=== PATIENT | female | born 1945 | race Caucasian/White ===

== ENCOUNTER → 2016-10-31 | Outpatient (CLI) | payer MEDICARE ==
[2016-10-27 13:40] VITALS: BMI 27.3
[2016-10-31 12:59] VITALS: BP 143/83; PULSE 74; RESP 16; TEMP 98.3
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
== END | disposition home or self-care (01) ==
LOC: PNWHC3 12:34
PROVIDERS: ATTEND Specialist
DX: M51.36 Other intervertebral disc degeneration, lumbar region (principal); M47.816 Spondylosis without myelopathy or radiculopathy, lumbar region; M46.96 Unspecified inflammatory spondylopathy, lumbar region; Z79.899 Other long term (current) drug therapy; Z88.8 Allergy status to other drugs, medicaments and biological substances; F98.8 Other specified behavioral and emotional disorders with onset usually occurring in childhood and adolescence; F90.9 Attention-deficit hyperactivity disorder, unspecified type; G43.909 Migraine, unspecified, not intractable, without status migrainosus; Z86.14 Personal history of Methicillin resistant Staphylococcus aureus infection
CPT/HCPCS: 99211

== ENCOUNTER 2016-11-08 06:52 | Day surgery (SDC) | payer MEDICARE ==
[2016-11-08 07:27] VITALS: RESP 18; TEMP 98.6
[2016-11-08] MEDS ORDERED: LACTATED RINGERS 1,000 ML IV SCH (07:30)
[2016-11-08] MEDS ORDERED: fentaNYL (PF) 50 MCG/ML 2 ML AMP ONE (08:03)
[2016-11-08] MEDS ORDERED: TRIAMCINOLONE ACETONIDE 40 MG/ML 1 ML VIAL ONE (08:03)
[2016-11-08] MEDS ORDERED: BUPIVACAINE (PF) 0.5% 30 ML VIAL ONE (08:03)
[2016-11-08] MEDS ORDERED: MIDAZOLAM 2 MG/2 ML VIAL ONE (08:03)
--- NOTE | 2016-11-08 08:16 | P.PCN ---
Date of Procedure: 11/08/16 Procedure(s) Performed: PREOPERATIVE DIAGNOSIS : 1- Lumbar spondylosis with Facet Arthropathy without myelopathy . 2- Lumber degenerative disc disease POSTOPERATIVE DIAGNOSIS: 1- Lumbar spondylosis with Facet Arthropathy without myelopathy . 2- Lumber degenerative disc disease PROCEDURE: Diagnostic Right L3 -4 , L4 -5 , and L5-S1 medial branch block under fluoroscopy ANESTHESIA: Local with 1% lidocaine 3 ml ; IV sedation with Versed 1 mg and Fentanyl 50 mcg. EBL: Minimal COMPLICATION: None. IV FLUIDS: 100 mL of normal saline. PROCEDURE INDICATION: Chronic low back pain secondary to Facet arthropathy unresponsive to conservative treatment. PROCEDURE DESCRIPTION: the patient was seen and identified in the preop holding area , risks and benefits and possible complications of the procedure and alternative were discussed with the patient, and the patient agreed to proceed with the procedure and signed the consent IV was started and vital signs monitored during the procedure and fluoroscopy was used to maximize the benefit and accuracy of the needle placement, and sedation was given to decrease patient anxiety, patient was taken to the procedure room and placed in prone position vital signs monitored in the back prepped with chlorhexidine X3 then under strict sterile technique using a right oblique fluoroscopy ,the junction of the transverse process and the superior articulating process of the right L3- 4 , L4- 5, and L5-S1 vertebra which corresponding to the fluoroscopy image of the eye of the Terell dog on the block side for the medial branches and subsequently , after local infiltration of skin and subcu tissuies with lidocaine 1% one mL at each level ,then 22- gauge Quincke-type needles , 3 needle was used , each one of them placed at the junction of the base of the transverse process and the superior articular process at the appropriate level, and the needle was advanced until the periosteum contacted, needle placement confirmed with AP oblique and lateral view and after appropriate needle placement confirmed, and after negative aspiration for heme and CSF and there was no paresthesia 1-1/2 mL of Marcaine 0.5% mixed with 40 mg Kenalog , then half mL injected at each level after negative aspiration the needle subsequently removed , and a bandage applied after the skin was cleaned the cleaning solution patient taken to recovery room in stable condition and monitors in the recovery room for 20-30 minutes and discharged home in stable condition after discharge criteria met and patient will follow up with the pain clinic in 2-4 weeks
[2016-11-08] MEDS ORDERED: IV FLUID CONTINUATION 1,000 ML IV ONE (08:20)
[2016-11-08 08:38] VITALS: BP 153/81; PULSE 82
--- NOTE | 2016-11-08 10:34 | FL ---
EXAMINATION TYPE: FL guided pain mgmt statistic DATE OF EXAM: 11/08/2016 8:22 AM FLUOROSCOPY Fluoroscopy time of 70 seconds was used during right lumbar facet medial branch block. 6 image/s doc ument/s the procedure.
== END 2016-11-08 09:02 | disposition home or self-care (01) ==
LOC: ORPAIN 06:52
PROVIDERS: ATTEND Specialist
DX: G89.29 Other chronic pain (principal); M47.816 Spondylosis without myelopathy or radiculopathy, lumbar region; M46.96 Unspecified inflammatory spondylopathy, lumbar region; M51.36 Other intervertebral disc degeneration, lumbar region; F90.9 Attention-deficit hyperactivity disorder, unspecified type; Z79.1 Long term (current) use of non-steroidal anti-inflammatories (NSAID); Z79.891 Long term (current) use of opiate analgesic; Z79.899 Other long term (current) drug therapy; Z86.14 Personal history of Methicillin resistant Staphylococcus aureus infection
CPT/HCPCS: 64493; 64494; 64495; J2250; J3301; J3010

== ENCOUNTER → 2016-12-06 | Outpatient (CLI) | payer MEDICARE ==
[2016-12-06 13:42] VITALS: BP 174/84; PULSE 78; RESP 16; TEMP 97.8
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
== END | disposition home or self-care (01) ==
LOC: PNWHC3 12:40
PROVIDERS: ATTEND Anesthesiology
DX: M54.5 Low back pain (principal); M25.559 Pain in unspecified hip; K21.9 Gastro-esophageal reflux disease without esophagitis; I10 Essential (primary) hypertension; Z88.6 Allergy status to analgesic agent; Z79.899 Other long term (current) drug therapy
CPT/HCPCS: 99211

== ENCOUNTER → 2017-01-09 | Day surgery (SDC) | payer MEDICARE ==
[2017-01-08 11:06] VITALS: BMI 27.3
[~2017-01-09] MED LIST: BUPIVACAINE (PF) 0.5% 30 ML VIAL ONE; IV FLUID CONTINUATION 1,000 ML IV ONE; LACTATED RINGERS 1,000 ML IV SCH; LIDOCAINE 1% 20 ML VIAL (10MG/ML) FOR IV START INTRADERMA ONE; MIDAZOLAM 2 MG/2 ML VIAL ONE; TRIAMCINOLONE ACETONIDE 40 MG/ML 1 ML VIAL ONE; fentaNYL (PF) 50 MCG/ML 2 ML AMP ONE
[2017-01-09 08:43] VITALS: RESP 16; TEMP 98.2
--- NOTE | 2017-01-09 09:38 | P.PCN ---
Date of Procedure: 01/09/17 Surgeon: Colby Donaldson Pathology: none sent Condition: stable Disposition: PACU Description of Procedure: PREOPERATIVE DIAGNOSIS: L3-L4, L4-L5, and L5-S1 spondylosis without myelopathy and facet arthropathy. POSTOPERATIVE DIAGNOSIS: L3-L4, L4-L5, and L5-S1 spondylosis without myelopathy and facet arthropathy. PROCEDURE DESCRIPTION: Patient presents for right side only L3, L4 and L5 diagnostic medial branch blocks under fluoroscopic guidance. The procedure is performed using fluoroscopic guidance during needle placement to assure proper position and maximize safety. ANESTHESIA: Local with 1% lidocaine; conscious sedation EBL: Minimal PROCEDURE INDICATION: Patient with lumbar facet arthropathy signs and symptoms, here for diagnostic medial branch block #2 on right side. 1 week's relief from first right lumbar MBB. Pt does not take any blood thinning medications. PROCEDURE DESCRIPTION: The patient was seen and identified in the preoperative area. Risks, benefits, complications, and alternatives were discussed with the patient (including but not limited to incomplete pain relief, bleeding, infection, nerve damage, and allergies to medications), the patient agreed to proceed with the procedure and signed the consent after all questions were answered. Patient was taken to the OR and time out was completed to verify proper patient, position, laterality of pain, and allergies. Pt was placed in the prone position and a pillow was placed under the abdomen to reduce lumbar lordosis. The lumbosacral area was prepped and draped in the usual sterile fashion. Using oblique fluoroscopy, the eye of the "Terell dog" of right L4 vertebral body, which corresponds to the path of the medial branch originating from the level above, which is L3 in this case, was identified. Subsequently, a 22-gauge 3.5-inch spinal needle was inserted under fluoroscopic guidance toward the eye of the "Terell dog" of the right L4 vertebral body, corresponding to the junction of the superior articular process and the transverse process of the pedicle of the same level. After needle tip confirmation on lateral view and after negative aspiration for CSF and blood and without paresthesias, 1 mL of a 3 ml solution of 0.5% preservative-free bupivacaine and 40 mg Kenalog was injected. Subsequently the needle was withdrawn intact and the same procedure was repeated for the right L4, right L5 medial branches which together with right L3 medial branch correspond to the sensory innervation of the right L3-L4, L4-L5 , and L5-S1 facet joints. Needle was withdrawn intact after each injection. At the end of the procedure, the skin was cleansed and bandages were applied. COMPLICATIONS: None. DISPOSITION/PLAN: The patient taken to the recovery area after the procedure in a stable condition for observation. Patient was reexamined prior to discharge and there were no issues. Patient was discharged home, accompanied by an adult, after meeting discharged criteria. Discharge instructions were give to the patient by the staff. Patient was specifically instructed not to drive today and to rest for the rest of the day. Patient will follow up for R lumbar RFA if she has relief from this procedure.
[2017-01-09 09:44] VITALS: BP 146/81; PULSE 79
--- NOTE | 2017-01-09 12:05 | FL ---
Fluoroscopy HISTORY: Pain 4 seconds fluoroscopy time supplied to the referring clinician. 2 intraoperative C-arm images docume nt the procedure. See dictated report from anesthesia.
== END ==
LOC: ORPAIN 07:57
PROVIDERS: ATTEND Anesthesiology
DX: G89.29 Other chronic pain (principal); M54.5 Low back pain; M47.817 Spondylosis without myelopathy or radiculopathy, lumbosacral region; M46.97 Unspecified inflammatory spondylopathy, lumbosacral region; I10 Essential (primary) hypertension; K21.9 Gastro-esophageal reflux disease without esophagitis; M81.0 Age-related osteoporosis without current pathological fracture; Z79.1 Long term (current) use of non-steroidal anti-inflammatories (NSAID); Z79.891 Long term (current) use of opiate analgesic; Z79.899 Other long term (current) drug therapy; Z88.6 Allergy status to analgesic agent
CPT/HCPCS: 64493; 64494; 64495; J2250; J3301; J3010

== ENCOUNTER 2017-02-12 07:30 | Day surgery (SDC) | payer MEDICARE ==
[2017-02-08 13:59] VITALS: BMI 27.3
[~2017-02-12 07:30] MED LIST changes: -BUPIVACAINE (PF) 0.5% 30 ML VIAL ONE; -IV FLUID CONTINUATION 1,000 ML IV ONE; -LIDOCAINE 1% 20 ML VIAL (10MG/ML) FOR IV START INTRADERMA ONE; -MIDAZOLAM 2 MG/2 ML VIAL ONE; -TRIAMCINOLONE ACETONIDE 40 MG/ML 1 ML VIAL ONE; -fentaNYL (PF) 50 MCG/ML 2 ML AMP ONE
[2017-02-12 07:42] VITALS: RESP 16; TEMP 98
[2017-02-12] MEDS ORDERED: LIDOCAINE 1% 20 ML VIAL (10MG/ML) FOR IV START INTRADERMA ONE (07:46)
[2017-02-12] MEDS ORDERED: DEXAMETHASONE SOD PHOS (MDV) 100 MG/10 ML VIAL ONE (08:03)
[2017-02-12] MEDS ORDERED: MIDAZOLAM 2 MG/2 ML VIAL ONE (08:03)
[2017-02-12] MEDS ORDERED: fentaNYL (PF) 50 MCG/ML 2 ML AMP ONE (08:03)
--- NOTE | 2017-02-12 08:38 | P.PCN ---
Date of Procedure: 02/12/17 Preoperative Diagnosis: Postoperative Diagnosis: Procedure(s) Performed: Implants: Surgeon: Colby Donaldson Pathology: none sent Condition: stable Disposition: PACU Indications for Procedure: Operative Findings: Description of Procedure: PREOPERATIVE DIAGNOSIS: Lumbar spondylosis without myelopathy and facet arthropathy POSTOPERATIVE DIAGNOSIS: Lumbar spondylosis without myelopathy and facet arthropathy PROCEDURES: Right Radiofrequency thermocoagulation, L3, L4, and L5 medial branch , with fluoroscopic guidance. ANESTHESIA: 1% lidocaine plain; Conscious sedation with versed/fentanyl EBL: Minimal PROCEDURE INDICATION: The patient with low back pain secondary to lumbar arthropathy who had more than 50% relief of pain with previous diagnostic lumbar medial branch block with bupivacaine. Patient presents for R lumbar RFA today; no use of blood thinners. PROCEDURE DESCRIPTION / TECHNIQUE: The patient was seen and identified in the preoperative area. Risks, benefits, complications, and alternatives were discussed with the patient (including but not limited to incomplete pain relief , bleeding, infection, nerve damage, and allergies to medications), the patient agreed to proceed with the procedure and signed the consent after all questions were answered. Patient was taken to the OR and time out was completed to verify proper patient , position, laterality of pain, and allergies. Pt was placed in the prone position. IV was started. Vital signs remained stable throughout the procedure. A pillow was placed under the patients chest to decrease lordosis. The lumbosacral area was prepped and draped in the usual sterile fashion. Vital signs were closely monitored during the procedure. Conscious sedation was used during the procedure to decrease patients anxiety. Using AP and then oblique fluoroscopy, the eye of the Terell dog corresponding to the connection between the superior and transverse articular processes of right L4, L5 and top of the sacrum were identified, marked, and localized with 1% lidocaine. Subsequently, a 20 gauge, 100-mm radiofrequency cannula with a 10-mm active tip was advanced guided by fluoroscopy to each of the eyes of the Terell dog at right L3, L4, and L5 medial branches. Each site then underwent sensory testing at 50 Hz and 0 to 1 volt and motor testing at 2 Hz and 0 to 3 volt with local stimulation, but no radicular symptoms down the legs. Thereafter the right L3, L4, and L5 medial branch sites underwent radiofrequency thermocoagulation at 80 degrees Celsius for 90 seconds after injecting 0.5 ml of PF lidocaine 1%. After thermocoagulation, 1 ml of the block solution containing Kenalog 40 mg and 2 mL of preservative-free normal saline was injected at the right L3, L4, and L5 medial branch levels after negative aspiration of CSF and blood and with no paresthesias. Cannulas were retracted while injecting lidocaine 1% until the needles were removed. At the end of the procedure, the skin was cleansed and bandages were applied. COMPLICATIONS: No acute complications. DISPOSITION / PLANS: The patient was placed in a supine position and transferred to the recovery area in a stable condition for observation and was discharged from the recovery room after meeting discharge criteria. Home discharge instructions given to the patient by the staff. The patient was reexamined prior to discharge and there were no issues. The patient will schedule a follow up in the clinic in 2-4 weeks.
[2017-02-12] MEDS ORDERED: IV FLUID CONTINUATION 1,000 ML IV ONE (08:45)
[2017-02-12 08:46] VITALS: PULSE 62
--- NOTE | 2017-02-12 08:46 | FL ---
EXAMINATION TYPE: FL guided pain mgmt statistic DATE OF EXAM: 02/12/2017 CLINICAL HISTORY: Low back pain. TECHNIQUE: Fluoroscopy. COMPARISON: None. FINDINGS: Fluoroscopic guidance was provided during pain relief procedure performed by Dr. Donaldson . A total of 19 seconds of fluoroscopic time was utilized during the procedure and two spot images are acquired. Images acquired shows needle localization at several levels off the midline in the lower l umbar spine. IMPRESSION: As Above.
[2017-02-12 09:09] VITALS: BP 132/65
== END 2017-02-12 09:29 | disposition home or self-care (01) ==
LOC: ORPAIN 07:30
PROVIDERS: ATTEND Anesthesiology
DX: M46.96 Unspecified inflammatory spondylopathy, lumbar region (principal); M47.816 Spondylosis without myelopathy or radiculopathy, lumbar region; Z88.6 Allergy status to analgesic agent
CPT/HCPCS: 64635; 64636 ×2; 99152; J2250; J3010; J1100

== ENCOUNTER → 2017-06-04 | Outpatient (CLI) | payer MEDICARE ==
[2017-06-04 13:50] VITALS: BP 167/90; PULSE 73; RESP 18
--- NOTE | 2017-06-04 14:17 | P.PN ---
Progress Note - Text Patient returns for followup for chronic right-sided low back pain with radiation to right LE down to ankle at times with sharp, shooting pain. Patient recently underwent R lumbar RFA, which provided excellent relief for interval since procedure. Patient continues on Percocet medications for pain with good relief. Patient denies adverse drug effects from medications. Today , pt denies new-onset weakness, bowel/bladder incontinence, or any other signs or symptoms of cauda equina syndrome. There are no signs of acute intoxication, and no indications of medication diversion or overuse. In addition to above, 13-point review of systems is also negative for chest pain , shortness of breath, changes in vision, changes in hearing, new onset weakness , abdominal pain, diarrhea, extreme fatigue, malaise, fever, skin changes, homicidal or suicidal ideation, or bowel or bladder incontinence. Vital Signs: Reviewed in EMR Gen: WDWN, AAOx3, NAD HEENT: NCAT, EOMI, hearing grossly normal Pulm: resp unlabored Abd: soft, NT, ND Neck: supple, trachea midline ROM in flexion lumbar spine: reduced ROM in extension lumbar spine: reduced Lumbar paravertebral tenderness: + Facet loading: + R side SI joint tenderness: + R side Gilles's test: neg Straight leg raise: + RLE at 10 degrees Neuro: CN II-XII grossly intact, muscle strength lower extremities PRESERVED Imaging: Reviewed in EMR Assessment: 1. lumbar spondylosis without myelopathy 2. lumbar radic 3. chronic pain syndrome Plan: 1. Explanation: Opioid and psychological risk scores were reviewed. Diagnoses , prognoses, and multiple treatment options including but not limited to physical therapy, interventional therapies, adjuvant medical therapies, narcotic medication therapies, and surgery were discussed with the patient and all questions were answered to the patient's satisfaction. 2. Opioid agreement: no opioids prescribed today 3. Counseling: The patient was counseled extensively on BODY MASS INDEX, EXERCISE. Specifically, the patient was instructed regarding the importance of sweight control, and exercise in the context of both chronic pain and overall health. 4. Procedures: LESI series (right paramedian) 5. Consultations: None 6. Investigations: None 7. Medications: none prescribed 8. Disposition: f/u for procedure as scheduled PQRS measures: 1-Patient's medications are documented in the chart. 2-Tobacco use is positive 3-Patient has not had a pneumococcal vaccine. 4-Advanced care planning discussed, patient unable to give. 5-Opioid contract NOT signed with the patient. 6-Pain positive, follow-up visit or procedure scheduled 7-Patient's blood pressure measured and documented, and patient will follow up with the primary care due to hypertension. 8-Patient's weight was measured, and body mass index ABOVE the normal limits, and counseling was done. Patient instructed to follow up with PCP. 9-Patient WAS NOT identified as an unhealthy alcohol user.
== END ==
LOC: PNWHC3 13:10
PROVIDERS: ATTEND Anesthesiology
DX: M47.816 Spondylosis without myelopathy or radiculopathy, lumbar region (principal)
CPT/HCPCS: 99211

== ENCOUNTER 2017-06-26 07:31 | Day surgery (SDC) | payer MEDICARE ==
[2017-06-20 16:05] VITALS: BMI 26.9
[2017-06-26 08:32] VITALS: TEMP 98
[2017-06-26] MEDS ORDERED: LIDOCAINE 1% 20 ML VIAL (10MG/ML) FOR IV START INTRADERMA ONE (08:32)
[2017-06-26] MEDS ORDERED: LACTATED RINGERS 1,000 ML IV ONE (08:32)
[2017-06-26 09:53] VITALS: BP 148/71; PULSE 74; RESP 16
--- NOTE | 2017-06-26 09:56 | FL ---
EXAMINATION TYPE: FL guided pain mgmt statistic DATE OF EXAM: 06/26/2017 COMPARISON: NONE HISTORY: Back pain TECHNIQUE: Fluoroscopy. FINDINGS/IMPRESSION: Fluoroscopic guidance was provided during procedure performed by Dr. Donaldson. A total of 9 seconds of fluoroscopic time was utilized during the procedure and 0 spot images were acqu ired.
[2017-06-26] MEDS ORDERED: LACTATED RINGERS 1,000 ML IV SCH (10:00)
[2017-06-26] MEDS ORDERED: IV FLUID CONTINUATION 1,000 ML IV ONE (10:09)
--- NOTE | 2017-06-26 10:27 | P.PCN ---
Date of Procedure: 06/26/17 Surgeon: Colby Donaldson Pathology: none sent Condition: stable Disposition: PACU Description of Procedure: PREOPERATIVE DIAGNOSIS: 1-Lumbar radiculitis. POSTOPERATIVE DIAGNOSIS: 1-Lumbar radiculitis. PROCEDURE 1. Lumbar epidural steroid injection under fluoroscopic guidance at the L5-S1 level. 2. Lumbar epidurogram. ANESTHESIA: Local with 1% lidocaine; IV sedation with Versed/fentanyl. EBL: Minimal PROCEDURE INDICATION: The patient with low back pain and radiculitis symptoms unresponsive to conservative treatment. Fluoroscopy was used to optimize visualization of the needle placement and to maximize safety. LESI #1 today, no use of blood thinners. PROCEDURE DESCRIPTION / TECHNIQUE: The patient was seen and identified in the preoperative area. Risks, benefits, complications, and alternatives were discussed with the patient, including but not limited to bleeding, infection, nerve damage, allergic reactions to medications, and incomplete pain relief. The patient agreed to proceed with the procedure and signed the consent after all questions were answered. IV was started, and vital signs were stable. Patient was taken to the OR and time out was completed to confirm patient position, procedure, laterality of pain, and allergies. The patient was placed in the prone position on procedure table and a pillow was placed under the abdomen to reduce lumbar lordosis. The lumbosacral area was prepped and draped in the usual sterile fashion. Critical pause was taken. Vital signs were closely monitored during the procedure. Conscious sedation was used during the procedure to decrease patients anxiety. Using anterior-posterior fluoroscopy, the L5-S1 interlaminar space was identified and the skin over this site was marked and then infiltrated with 1% lidocaine subcutaneously. Subsequently, a 20-gauge 3.5-inch Tuohy epidural needle was inserted and advanced toward the epidural space using the Loss of resistance technique and guided by AP and lateral fluoroscopy. The correct needle position in the epidural space was verified with the injection of 2 mL of the water soluble contrast dye Omnipaque 300 contrast and observing an excellent epidurogram with the epidural spread of the dye, after negative aspiration for blood and CSF and in the absence of paresthesias. Again after negative aspiration, a 8 ml mixture containing 20 mg of PF Decadron and 4 ml of preservative free Normal Saline, and 2 ml of preservative free lidocaine 1% solution was injected and a washout of epidurogram was seen. Needle was withdrawn intact, skin was cleansed, and bandages were applied. COMPLICATIONS: None COMMENTS: DISPOSITION / PLANS: The patient was placed in a supine position and transferred to the recovery area in a stable condition for observation. There was no evidence of lower extremity motor or sensory deficit after the procedure. Patient was discharged from the recovery room after meeting discharge criteria. Home discharge instructions were given to the patient by the staff. The patient was reexamined prior to discharge and there were no issues. The patient will schedule a repeat LESI in 4-6 weeks.
== END 2017-06-26 10:10 | disposition home or self-care (01) ==
LOC: ORPAIN 07:31
PROVIDERS: ATTEND Anesthesiology
DX: M47.26 Other spondylosis with radiculopathy, lumbar region (principal); G89.4 Chronic pain syndrome; Z79.891 Long term (current) use of opiate analgesic; Z72.0 Tobacco use
CPT/HCPCS: 62323; J2250; J1100; Q9965; J3010; 99152

== ENCOUNTER 2017-07-19 06:47 | Day surgery (SDC) | payer MEDICARE ==
[2017-07-18 10:10] VITALS: BMI 27.3
[~2017-07-19 06:47] MED LIST changes: +LACTATED RINGERS 1,000 ML IV ONE; -LACTATED RINGERS 1,000 ML IV SCH
[2017-07-19 08:01] VITALS: RESP 16; TEMP 97.7
--- NOTE | 2017-07-19 08:20 | P.PCN ---
Date of Procedure: 07/19/17 Preoperative Diagnosis: lumbar radiculopathy Postoperative Diagnosis: same as above Procedure(s) Performed: lumbar epidural steroid injection under fluoroscopic guidance Anesthesia: MAC (conscious sedation with IV fentanyl and Versed) Surgeon: Elizabeth Pham Pathology: none sent Condition: stable Disposition: PACU Description of Procedure: The patient was seen and identified in the preoperative area. Risks, benefits, complications including but not limited to infections ,bleeding ,allergic reaction to the medications ,nerve damage and not complete pain releife , and alternatives were discussed with the patient. The patient agreed to proceed with the procedure and signed the consent. IV was started, and vital signs were stable. Patient was taken to the OR and time out was completed. The patient was placed in the prone position on procedure table and a pillow was placed under the abdomen to reduce lumbar lordosis. The lumbosacral area was prepped and draped in the usual sterile fashion with Betadine 3.Patient was closely monitored during the procedure. Conscious sedation was used during the procedure to decrease patients anxiety. Vital signs were monitered during the entire procedure. Using anterior-posterior fluoroscopy, the L5-S1 interlaminar space was identified and the skin over this site was marked and then infiltrated with 1% lidocaine subcutaneously. Subsequently, a 20-gauge Tuohy epidural needle was inserted and advanced toward the epidural space using the Loss of resistance to air technique and guided by AP and lateral fluoroscopyin the right paramedian approach. The correct needle position in the epidural space was verified with the injection of 1 mL of the water soluble contrast dye Omnipaque 180 contrast and observing an excellent epidurogram with the epidural spread of the dye, after negative aspiration for blood and CSF and in the absence of paresthesias. Again after negative aspiration, a 8 ml mixture containing 40 mg of Kenalog and 5 ml of preservative free Normal Saline, and 1 ml of preservative free Marcaine 0.25% solution was injected and a washout of epidurogram was seen. Needle was withdrawn intact, skin was cleansed, and bandages were applied. patient tolerated procedure well and was transferred to PACU in stable condition. COMPLICATIONS: None DISPOSITION / PLANS: The patient was placed in a supine position and transferred to the recovery area in a stable condition for observation. There was no evidence of lower extremity motor or sensory deficit after the procedure. Patient was discharged from the recovery room after meeting discharge criteria. Home discharge instructions were given to the patient by the staff.
[2017-07-19] MEDS ORDERED: IV FLUID CONTINUATION 1,000 ML IV ONE (08:26)
--- NOTE | 2017-07-19 08:42 | FL ---
EXAMINATION TYPE: FL guided pain mgmt statistic DATE OF EXAM: 07/19/2017 CLINICAL HISTORY: Low back pain. TECHNIQUE: Fluoroscopy. COMPARISON: None. FINDINGS: Fluoroscopic guidance was provided during pain relief procedure performed by Dr. Pham . A total of 6 seconds of fluoroscopic time was utilized during the procedure and two spot images are acquired. Images acquired shows needle localization at level of lumbosacral junction from posterior approach. IMPRESSION: As Above.
[2017-07-19 09:00] VITALS: BP 161/78; PULSE 69
== END 2017-07-19 09:16 | disposition home or self-care (01) ==
LOC: ORPAIN 06:47
PROVIDERS: ATTEND Anesthesiology
DX: M54.16 Radiculopathy, lumbar region (principal); Z87.11 Personal history of peptic ulcer disease
CPT/HCPCS: 62323; J2250; J3301; Q9965; J3010; 99152

== ENCOUNTER → 2017-10-31 | Outpatient (CLI) | payer MEDICARE ==
[2017-10-31 14:43] VITALS: BP 179/75; PULSE 63; RESP 16
--- NOTE | 2017-10-31 15:04 | P.PN ---
Progress Note - Text Progress Note Date: 10/31/17 Patient returns for followup for chronic right-sided low back pain with radiation to right LE down to ankle at times with sharp, shooting pain. Patient recently underwent LESI x 2 with near-complete relief since last procedure. Patient continues on Percocet medications for pain with good relief. Patient denies adverse drug effects from medications. Today, pt denies new-onset weakness, bowel/bladder incontinence, or any other signs or symptoms of cauda equina syndrome. There are no signs of acute intoxication, and no indications of medication diversion or overuse. In addition to above, 13-point review of systems is also negative for chest pain , shortness of breath, changes in vision, changes in hearing, new onset weakness , abdominal pain, diarrhea, extreme fatigue, malaise, fever, skin changes, homicidal or suicidal ideation, or bowel or bladder incontinence. Vital Signs: Reviewed in EMR Gen: WDWN, AAOx3, NAD HEENT: NCAT, EOMI, hearing grossly normal Pulm: resp unlabored Abd: soft, NT, ND Neck: supple, trachea midline ROM in flexion lumbar spine: reduced ROM in extension lumbar spine: reduced Lumbar paravertebral tenderness: + Facet loading: + R side SI joint tenderness: + R side Gilles's test: neg Straight leg raise: neg Neuro: CN II-XII grossly intact, muscle strength lower extremities PRESERVED Imaging: Reviewed in EMR Assessment: 1. lumbar spondylosis without myelopathy 2. lumbar radic 3. chronic pain syndrome Plan: 1. Explanation: Opioid and psychological risk scores were reviewed. Diagnoses , prognoses, and multiple treatment options including but not limited to physical therapy, interventional therapies, adjuvant medical therapies, narcotic medication therapies, and surgery were discussed with the patient and all questions were answered to the patient's satisfaction. 2. Opioid agreement: no opioids prescribed today 3. Counseling: The patient was counseled extensively on BODY MASS INDEX, EXERCISE. Specifically, the patient was instructed regarding the importance of sweight control, and exercise in the context of both chronic pain and overall health. 4. Procedures: none for now 5. Consultations: None 6. Investigations: None 7. Medications: none prescribed 8. Disposition: f/u as needed, patient can call for more LESIs PQRS measures: 1-Patient's medications are documented in the chart. 2-Tobacco use is positive 3-Patient has not had a pneumococcal vaccine. 4-Advanced care planning discussed, patient unable to give. 5-Opioid contract NOT signed with the patient. 6-Pain positive, follow-up visit or procedure scheduled 7-Patient's blood pressure measured and documented, and patient will follow up with the primary care due to hypertension. 8-Patient's weight was measured, and body mass index ABOVE the normal limits, and counseling was done. Patient instructed to follow up with PCP. 9-Patient WAS NOT identified as an unhealthy alcohol user.
== END | disposition home or self-care (01) ==
LOC: PNWHC3 14:23
PROVIDERS: ATTEND Anesthesiology
DX: G89.4 Chronic pain syndrome (principal); M47.26 Other spondylosis with radiculopathy, lumbar region; Z79.891 Long term (current) use of opiate analgesic
CPT/HCPCS: 99211

== ENCOUNTER → 2018-02-07 | Outpatient (CLI) | payer MEDICARE ==
[2018-02-07 13:12] VITALS: BP 142/73; PULSE 94; RESP 16
--- NOTE | 2018-02-07 13:42 | P.PAINPG ---
Subjective Progress Note Date: 02/07/18 Principal diagnosis: Lumbar spinal stenosis, lumbar spondylolisthesis Summary pleasant 72-year-old woman with a history of low back pain as well as pain down both legs. She is undergone previous epidural steroid injections at the L5-S1 interspace which she found to be very helpful in reducing her pain. Her last injection was done in July of last year. She only had 2 injections in that series. The third injection was canceled because she was pain-free. She denies bowel or bladder dysfunction. Objective - Vital Signs Vital signs: Vital Signs Temp Pulse 94 02/07/18 13:03 Resp 16 02/07/18 13:03 BP 142/73 02/07/18 13:03 Pulse Ox 98 02/07/18 13:03 Intake & Output 02/06/18 02/07/18 02/07/18 18:59 06:59 18:59 Weight 63.503 kg - Exam General: The patient is alert and oriented. Patient is not sedateded Patient is a question appropriately. Cardiac: Heart is regular in rate and rhythm Respiratory: Clear to auscultation. No audible wheezes. Abdomen: Soft nontender nondistended. Lower extremities: Strength is normal bilaterally. Sensation is normal bilaterally. Reflexes are preserved and symmetric bilaterally. Straight leg raise is negative bilaterally. Facet loading maneuvers are negative on the left and positive on the right. The patient also has significant myofascial tenderness in this area. Assessment and Plan (1) Lumbar radiculopathy Narrative/Plan: Plan of Care 1. Medications: She does not receive any medications from our clinic. I have reviewed the patient's MAPS report and it reveals expected results. Patient has signed an opiate agreement as well as opiate consent for treatment in our clinic. They understand the risks and benefits of opiate medications. They are aware of the potential for addiction. 2. Interventions: We'll schedule the patient for a repeat lumbar steroid injection at the L5-S1 interspace. These worked very well for her in the past. If she does not benefit from the lumbar epidural steroid injection, I would recommend considering a right lumbar medial branch nerve block at L4, L5 and sacral ala. 3. Referrals: None 4. Testing: None 5. Psychological: None Current Visit: Yes Status: Acute Code(s): M54.16 - RADICULOPATHY, LUMBAR REGION SNOMED Code(s): 484614944 (2) Spondylolisthesis, lumbar region Current Visit: Yes Status: Acute Code(s): M43.16 - SPONDYLOLISTHESIS, LUMBAR REGION SNOMED Code(s): 143941957756281 PQRS Measure Charge Sheet Measure #130: Documentation of Current Meds in Medical Chart: Patient's medications documented in chart Measure #226: Tobacco Use: Screen & Cessation Intervention: Pt not a tobacco user Measure #111: Pneumonia Vaccination: Pneumococcal vaccine NOT administered or previously given Measure #47: Advance Care Plan: Advance care planning discussed & documented, pt chose/unable to give Measure #412: Opioid Treatment Agreement: No documentation of signed opioid treatment agreement Measure #408: Opioid Therapy Follow-up Evaluation: Patient had NO f/u eval minimum every 3 months during opioid therapy Measure #317: Preventitive Care & Scrn High Bld Press & F/U: Pre-hypertensive or hypertensive BP documented, pt will f/u with PCP Measure #128: Body Mass Index (BMI) Screening & Follow-up: BMI documented within normal parameters Measure #131: Pain Assessment & Follow-up: Pain positive & plan documented Measure #431: Unhealthy Alcohol Use Preventative Care & Scrn: Patient not identified as an unhealthy alcohol user PQRS Narrative: Smoking Status Never smoker Do You Want the Pneumonia Vaccine Up to Date Vaccine AT THIS TIME? Blood Pressure 142/73 Pain Intensity [Bilateral 6 Lower Back] Scale Used Numeric (1 - 10) Hx Alcohol Use (MH) No Home Medications: Ambulatory Orders Alendronate Sodium [Fosamax] 70 mg PO TU 05/07/15 Dextroamphetamine/Amphetamine [Adderall] 20 mg PO QID 05/07/15 FLUoxetine HCL [PROzac] 20 mg PO DAILY 05/07/15 Furosemide [Lasix] 20 mg PO QAM 05/07/15 Meloxicam 15 mg PO DAILY 05/07/15 Omeprazole [PriLOSEC] 20 mg PO DAILY 05/07/15 Potassium Chloride [K-Tab ER] 20 meq PO DAILY 05/07/15 Propranolol [Inderal] 40 mg PO DAILY 05/07/15 Gabapentin [Neurontin] 100 mg PO BID 12/06/16 oxyCODONE HCL/ACETAMINOPHEN [Percocet 10-325 mg] 1 tab PO Q6HR PRN 02/08/17 Controlled Substance Measures - Controlled Substance Measures Is patient prescribed a controlled substance at discharge?: No
== END | disposition home or self-care (01) ==
LOC: PNWHC3 12:12
PROVIDERS: ATTEND Pain Medicine Pain Medicine
DX: M43.16 Spondylolisthesis, lumbar region (principal); M54.16 Radiculopathy, lumbar region; Z79.899 Other long term (current) drug therapy; Z79.1 Long term (current) use of non-steroidal anti-inflammatories (NSAID); Z79.891 Long term (current) use of opiate analgesic
CPT/HCPCS: 99211

== ENCOUNTER 2018-02-14 06:47 | Day surgery (SDC) | payer MEDICARE ==
[2018-02-14] MEDS ORDERED: LACTATED RINGERS 1,000 ML IV SCH (07:15)
[2018-02-14] MEDS ORDERED: LIDOCAINE 1% 20 ML VIAL (10MG/ML) FOR IV START INTRADERMA ONE (07:28)
[2018-02-14 07:29] VITALS: RESP 16; TEMP 97.8
--- NOTE | 2018-02-14 08:24 | P.PCN ---
Date of Procedure: 02/14/18 Surgeon: Colby Donaldson Pathology: none sent Condition: stable Disposition: PACU Description of Procedure: PREOPERATIVE DIAGNOSIS: 1-Lumbar radiculitis. POSTOPERATIVE DIAGNOSIS: 1-Lumbar radiculitis. PROCEDURE 1. Lumbar epidural steroid injection under fluoroscopic guidance at the L5-S1 level. 2. Lumbar epidurogram. ANESTHESIA: Local with 1% lidocaine; IV sedation with Versed/fentanyl. EBL: Minimal PROCEDURE INDICATION: The patient with low back pain and radiculitis symptoms unresponsive to conservative treatment. Fluoroscopy was used to optimize visualization of the needle placement and to maximize safety. LESI #1 in series today after good relief from previous LESIs, no use of blood thinners. PROCEDURE DESCRIPTION / TECHNIQUE: The patient was seen and identified in the preoperative area. Risks, benefits, complications, and alternatives were discussed with the patient, including but not limited to bleeding, infection, nerve damage, allergic reactions to medications, and incomplete pain relief. The patient agreed to proceed with the procedure and signed the consent after all questions were answered. IV was started, and vital signs were stable. Patient was taken to the OR and time out was completed to confirm patient position, procedure, laterality of pain, and allergies. The patient was placed in the prone position on procedure table and a pillow was placed under the abdomen to reduce lumbar lordosis. The lumbosacral area was prepped and draped in the usual sterile fashion. Critical pause was taken. Vital signs were closely monitored during the procedure. Conscious sedation was used during the procedure to decrease patients anxiety. Using anterior-posterior fluoroscopy, the L5-S1 interlaminar space was identified and the skin over this site was marked and then infiltrated with 1% lidocaine subcutaneously. Subsequently, a 20-gauge 3.5-inch Tuohy epidural needle was inserted and advanced toward the epidural space using the Loss of resistance technique and guided by AP and lateral fluoroscopy. The correct needle position in the epidural space was verified with the injection of 2 mL of the water soluble contrast dye Omnipaque 300 contrast and observing an excellent epidurogram with the epidural spread of the dye, after negative aspiration for blood and CSF and in the absence of paresthesias. Again after negative aspiration, a 7 ml mixture containing 40 mg of Depo Medrol and 4 ml of preservative free Normal Saline, and 2 ml of preservative free lidocaine 1% solution was injected and a washout of epidurogram was seen. Needle was withdrawn intact, skin was cleansed, and bandages were applied. COMPLICATIONS: None COMMENTS: DISPOSITION / PLANS: The patient was placed in a supine position and transferred to the recovery area in a stable condition for observation. There was no evidence of lower extremity motor or sensory deficit after the procedure. Patient was discharged from the recovery room after meeting discharge criteria. Home discharge instructions were given to the patient by the staff. The patient was reexamined prior to discharge and there were no issues. The patient will schedule a repeat LESI in 4-6 weeks.
--- NOTE | 2018-02-14 08:39 | FL ---
Fluoroscopy INDICATION: Pain FINDINGS: Fluoroscopy time: 5 seconds. Images obtained: 3. IMPRESSIONS: 1. Documentation of fluoroscopy.
[2018-02-14 08:48] VITALS: BP 155/70; PULSE 66
[2018-02-14] MEDS ORDERED: IV FLUID CONTINUATION 1,000 ML IV ONE (08:54)
== END 2018-02-14 09:05 | disposition home or self-care (01) ==
LOC: ORPAIN 06:47
PROVIDERS: ATTEND Anesthesiology
DX: M48.061 Spinal stenosis, lumbar region without neurogenic claudication (principal); M43.16 Spondylolisthesis, lumbar region
CPT/HCPCS: 62323; J2250; J1030; J3010; Q9966

== ENCOUNTER 2018-03-05 08:28 | Day surgery (SDC) | payer MEDICARE ==
[2018-03-05 10:05] VITALS: TEMP 97.8
[2018-03-05] MEDS: LACTATED RINGERS 1,000 ML IV SCH ×2 (10:14→10:16)
[2018-03-05] MEDS ORDERED: LIDOCAINE 1% 20 ML VIAL (10MG/ML) FOR IV START INTRADERMA ONE (10:15)
--- NOTE | 2018-03-05 10:33 | P.PCN ---
Date of Procedure: 03/05/18 Procedure(s) Performed: PREOPERATIVE DIAGNOSIS: 1- Lumbar Degenerative Disc Diseases 2-Lumbar spondylosis with Facet arthropathy without myelopathy POSTOPERATIVE DIAGNOSIS: 1-Lumber Degenerative Disc Diseases 2-Lumbar spondylosis with Facet arthropathy without myelopathy PROCEDURE 1. Lumbar epidural steroid injection under fluoroscopic guidance at the L5-S1 level. 2. Lumbar epidurogram. ANESTHESIA: Local with 1% lidocaine 3 ml and , moderate sedation with intravenous Versed 1 mg ,and fentanyle 50 Mcg EBL: Minimal PROCEDURE INDICATION: The patient with low back pain and radiculitis symptoms unresponsive to conservative treatment. Fluoroscopy was used to optimize visualization of the needle placement and to maximize safety. PROCEDURE DESCRIPTION / TECHNIQUE: The patient was seen and identified in the preoperative area. Risks, benefits , complications including but not limited to infections ,bleeding ,allergic reaction to the medications ,nerve damage and not complete pain releife , and alternatives were discussed with the patient. The patient agreed to proceed with the procedure and signed the consent. IV was started, and vital signs were stable. Patient was taken to the OR and time out was completed. The patient was placed in the prone position on procedure table and a pillow was placed under the abdomen to reduce lumbar lordosis. The lumbosacral area was prepped and draped in the usual sterile fashion.ere closely monitored during the procedure. Conscious sedation was used during the procedure to decrease patients anxiety. Vital signs was monitered during the entire procedure. Using anterior-posterior fluoroscopy, the L5-S1 interlaminar space was identified and the skin over this site was marked and then infiltrated with 1% lidocaine subcutaneously. Subsequently, a 20-gauge Tuohy epidural needle was inserted and advanced toward the epidural space using the ``Loss of resistance technique and guided by AP and lateral fluoroscopy. The correct needle position in the epidural space was verified with the injection of 2 mL of the water soluble contrast dye Isovue 200 contrast and observing an excellent epidurogram with the epidural spread of the dye, after negative aspiration for blood and CSF and in the absence of paresthesias. Again after negative aspiration, a 6 ml mixture containing 80 mg depomedrol, and 2 ml of preservative free Normal Saline, and 2 ml of preservative free lidocaine 1% solution was injected and a washout of epidurogram was seen. Needle was withdrawn intact, skin was cleansed, and bandages were applied. COMPLICATIONS: None DISPOSITION / PLANS: The patient was placed in a supine position and transferred to the recovery area in a stable condition for observation. There was no evidence of lower extremity motor or sensory deficit after the procedure. Patient was discharged from the recovery room after meeting discharge criteria. Home discharge instructions were given to the patient by the staff. The patient was reexamined prior to discharge. The patient will schedule a follow up in the clinic in 2-4 weeks.
--- NOTE | 2018-03-05 10:41 | FL ---
EXAMINATION TYPE: FL guided pain mgmt statistic DATE OF EXAM: 03/05/2018 HISTORY: Pain 21 sec fluoro, 1 image scanned into pacs
[2018-03-05 10:42] VITALS: RESP 20
[2018-03-05 11:00] VITALS: BP 129/63; PULSE 68
== END 2018-03-05 11:12 | disposition home or self-care (01) ==
LOC: ORPAIN 08:28
PROVIDERS: ATTEND Specialist
DX: M51.36 Other intervertebral disc degeneration, lumbar region (principal); M47.816 Spondylosis without myelopathy or radiculopathy, lumbar region; I10 Essential (primary) hypertension; Z88.6 Allergy status to analgesic agent
CPT/HCPCS: 62323; J2250; J1030; J3010; Q9966

== ENCOUNTER → 2018-04-08 | Outpatient (CLI) | payer MEDICARE ==
[2018-04-08 14:38] VITALS: BP 161/70; PULSE 75; RESP 18
--- NOTE | 2018-04-08 15:07 | P.PN ---
Subjective Progress Note Date: 04/08/18 Principal diagnosis: Lumbar spondylosis without myelopathy, DDD This is a 72-year-old female with chronic lower back pain for which she had lumbar epidural steroid injection which helped her pain significantly however she still feels pain in the groins anteriorly and also in the hamstring muscles bilaterally. The pain gets worse on the sitting position. She denies any bowel or bladder dysfunction or any weakness in the lower extremities. She takes Percocet 10 mg 3 times a day if needed for her pain and she gets that prescribed from her family physician. Objective - Vital Signs Vital signs: Vital Signs Temp Pulse 75 04/08/18 14:29 Resp 18 04/08/18 14:29 BP 161/70 04/08/18 14:29 Pulse Ox 100 04/08/18 14:29 Intake & Output 04/07/18 04/08/18 04/08/18 18:59 06:59 18:59 Weight 76.657 kg - Constitutional General appearance: Present: average body habitus - EENT Eyes: Present: PERRLA - Respiratory Respiratory: bilateral: CTA - Cardiovascular Rhythm: regular Heart sounds: normal: S1, S2 - Neurologic Neurologic: Present: CNII-XII intact - Musculoskeletal Musculoskeletal Comment(s): Neuro exam of the lower extremities showed normal and symmetrical muscle strength and normal and symmetrical deep tendon reflexes. Musculoskeletal: Present: strength equal bilaterally - Psychiatric Psychiatric: Present: A&O x's 3, appropriate affect, intact judgment & insight Assessment and Plan Plan: This is a 72-year-old female with chronic lower back pain and radiation to the lower extremities down to the knees with no numbness or tingling in the lower extremities. Her pain is better now after the last epidural steroid injection. We will see her in 2 months for reevaluation and that time if she has any pain in the posterior thighs below might need to repeat her lumbar medial branch RFA which she received 1 year ago with good results. The patient is to continue using Percocet as prescribed from her primary care physician. She does have pain in the right hand that wakes her up at night which might be due to carpal tunnel syndrome. The patient may need to have an EMG on the right arm which can be ordered by her primary care physician.
== END | disposition home or self-care (01) ==
LOC: PNWHC3 13:52
PROVIDERS: ATTEND Anesthesiology
DX: G89.29 Other chronic pain (principal); M54.5 Low back pain; Z79.891 Long term (current) use of opiate analgesic
CPT/HCPCS: 99211

== ENCOUNTER 2018-04-18 14:37 | Emergency (ER) | payer MEDICARE ==
[2018-04-18] MEDS ORDERED: MORPHINE SULFATE 4 MG/ML SYRINGE IM STA (17:20)
[2018-04-18] MEDS ORDERED: DIAZEPAM 5 MG/ML 2 ML INJ IM ONE (17:34)
--- NOTE | 2018-04-18 18:06 | CT ---
EXAMINATION TYPE: CT cervical spine wo con DATE OF EXAM: 04/18/2018 COMPARISON: None HISTORY: rt shoulder pain/rt arm pain. no injury CT DLP: 517 mGycm Automated exposure control for dose reduction was used. TECHNIQUE: CT scan of the cervical spine is obtained without contrast, axial images are obtained, sa gittal and coronal reformatted images are also reviewed. FINDINGS: Cervical vertebra have normal alignment. There is moderate anterior spurring at C5-6 and to lesser extent C4-5 and C6-7. There is hypertrophic multilevel cervical facet arthropathy. The after school counselor ior elements are intact. Skull base is intact. There is pleural and pulmonary scarring at the lung ap ices. IMPRESSION: Spondylotic changes. No fracture seen.
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
[2018-04-18 19:18] VITALS: BP 122/74; PULSE 88; RESP 16; TEMP 97.6
== END 2018-04-18 19:18 | disposition home or self-care (01) ==
LOC: EC 14:37
DX: M54.12 Radiculopathy, cervical region (principal); G89.29 Other chronic pain; K21.9 Gastro-esophageal reflux disease without esophagitis; M19.90 Unspecified osteoarthritis, unspecified site; F32.9 Major depressive disorder, single episode, unspecified; F90.9 Attention-deficit hyperactivity disorder, unspecified type; Z86.14 Personal history of Methicillin resistant Staphylococcus aureus infection; Z79.1 Long term (current) use of non-steroidal anti-inflammatories (NSAID); Z79.899 Other long term (current) drug therapy; Z88.6 Allergy status to analgesic agent
CPT/HCPCS: 72125; 99283; 96372 ×2; J2270; J3360

== ENCOUNTER → 2018-05-10 | Outpatient (CLI) | payer MEDICARE ==
--- NOTE | 2018-05-12 08:49 | MR ---
EXAMINATION TYPE: MR cervical spine wo con DATE OF EXAM: 05/10/2018 COMPARISON: None HISTORY: 72-year-old female Cervicalgia, neck pain TECHNIQUE: Multiplanar, multisequence images of the cervical spine were acquired. FINDINGS: No craniocervical junction abnormality, predental space widening, or prevertebral soft tissue swellin g. Mild heterogeneity of marrow signal without suspicious bone marrow replacement. Moderate disc/endplate degenerative change especially at C6-C7. There is disc desiccation throughout the variable disc space narrowing and disc osteophyte complex formation. Ligamentum flavum thickening particularly at C4-C5 along with scattered facet and uncovertebral joint degenerative change. No prevertebral or paravertebral soft tissue abnormality seen. At C2-C3, mild ligamentum flavum thickening and minimal posterior disc bulge. There is hypertrophic f acet arthropathy present with changes resulting in mild left neuroforaminal stenosis. No significant spinal canal stenosis. At C3-C4, hypertrophic facet arthropathy and contribute to [id number] right and mild left neuro foraminal stenosis. No significant spinal canal stenosis. At C4-C5, posterior disc osteophyte complex with ligamentum flavum thickening and hypertrophic facet arthropathy particularly on the right. Changes result in mild right neuroforaminal stenosis with mild narrowing of the spinal canal. There is no mass effect onto the spinal cord. At C5-C6, broad-based disc osteophyte complex eccentric toward the left where there is contiguous unc overtebral joint arthropathy. Bilateral facet degenerative changes also present. Moderate left neurof oraminal stenosis and mild narrowing of the spinal canal. Ventral cord abutment but no cord flattenin g. At C6-C7, broad-based disc osteophyte complex with uncovertebral joint arthropathy. Changes noted mil d left neuroforaminal stenosis without significant spinal canal stenosis. At C7-T1, there is bilateral facet arthropathy and posterior disc osteophyte complex. This impresses on the ventral thecal sac without significant spinal canal stenosis. Changes within mild bilateral ne uroforaminal stenosis, left greater than right. At T1-T2, left greater than right facet arthropathy and minimal disc bulge. Ligamentum flavum thicken ing is present. There is mild bilateral neural foraminal stenosis, left greater than right. No spinal canal stenosis. Normal course, caliber, and signal intensity of the cervical cord. Alignment is maintained. IMPRESSION: 1. Moderate multilevel spondylotic change with levels of hypertrophic facet arthropathy and disc oste ophyte complexes. 2. Changes mildly narrow the spinal canal at C4-C5 and C5-C6. There is some cord abutment at C4-C5 bu t no cord flattening or cord compression. 3. Facet and uncovertebral joint arthropathy results in variable mild neuroforaminal stenoses as outl ined above, moderate on the left at C5-C6.
== END | disposition home or self-care (01) ==
LOC: RADMRIMAIN 12:08
PROVIDERS: ATTEND Family Medicine
DX: M99.71 Connective tissue and disc stenosis of intervertebral foramina of cervical region (principal); M48.02 Spinal stenosis, cervical region; M47.813 Spondylosis without myelopathy or radiculopathy, cervicothoracic region; M46.82 Other specified inflammatory spondylopathies, cervical region; M25.78 Osteophyte, vertebrae
CPT/HCPCS: 72141

== ENCOUNTER → 2020-09-17 | Outpatient (CLI) | payer MEDICARE ==
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
== END | disposition home or self-care (01) ==
LOC: RADUSWWP 12:43
PROVIDERS: ATTEND Family Medicine
DX: R31.9 Hematuria, unspecified (principal)
CPT/HCPCS: 76856

== ENCOUNTER → 2020-10-11 | Outpatient (CLI) | payer MEDICARE ==
--- NOTE | 2020-10-11 15:25 | BD ---
EXAMINATION TYPE: Axial Bone Density DATE OF EXAM: 10/11/2020 COMPARISON: 02/22/2015 CLINICAL HISTORY: Height: 62.5 IN Weight: 155 LBS FRAX RISK QUESTIONS: History of Fracture in Adulthood: RT HUMERUS AGE 65 Secondary Osteoporosis: Rheumatoid Arthritis: YES RISK FACTORS HISTORY OF: Active: YES Postmenopausal woman: AGE 50 MEDICATIONS: Osteoporosis Medications: YES Which medication: Actonel How Lon+ YEARS Additional Medications: ACTONEL, CALCIUM, VIT D, OXYCODONE,BLOOD PRESSURE MED, STOMACH MEDS, GABAPEN TIN, EXAM MEASUREMENTS: Bone mineral densitometry was performed using the [facility] System. Bone mineral density as measured about the Lumbar spine is: ----- L1-L4(G/cm2): 1.508 T Score Values are as follows: ----- L2: 2.2 ----- L3: 2.4 ----- L4: 4.1 ----- L1-L4: 2.7 Bone mineral density has: Increased 5.0% since study of: 02/22/2015 Bone mineral density about the R hip (g/cm2): 0.944 Bone mineral density about the L hip (g/cm2): 0.917 T Score values are as follows: -----R Neck: -0.7 -----L Neck: -0.9 -----R Total: 0.4 -----L Total: -0.4 Bone mineral density has: Decreased -9.3% since study of: 02/22/2015 IMPRESSION: No evidence for osteoporosis or osteopenia. NOTE: T-SCORE=SD OF THE YOUNG ADULT MEAN.
--- NOTE | 2020-10-12 13:52 | MM ---
Reason for exam: screening (asymptomatic). Last mammogram was performed 5 years and 8 months ago. History: Patient is postmenopausal. Physical Findings: A clinical breast exam by your physician is recommended on an annual basis and results should be correlated with mammographic findings. MG 3D Screening Mammo W/Cad Bilateral CC and MLO view(s) were taken. Prior study comparison: February 22, 2015, bilateral MG screening mammo w CAD. July 19, 2012, mammogram, performed at [facility]. There are scattered fibroglandular densities. No significant changes when compared with prior studies. ASSESSMENT: Benign, BI-RAD 2 RECOMMENDATION: Routine screening mammogram of both breasts in 1 year.
== END | disposition home or self-care (01) ==
LOC: RADMAMWWP 14:02
PROVIDERS: ATTEND Family Medicine
DX: Z12.31 Encounter for screening mammogram for malignant neoplasm of breast (principal); Z78.0 Asymptomatic menopausal state
CPT/HCPCS: 77063; 77067; 77080

== ENCOUNTER → 2023-07-02 | Outpatient (CLI) | payer MEDICARE ==
--- NOTE | 2023-07-02 10:36 | BD ---
EXAMINATION TYPE: Axial Bone Density DATE OF EXAM: 07/02/2023 CLINICAL HISTORY: 77 years old Female. ICD-10 CODE: M81.0 AGE-RELATED OSTEOPOROSI Height: 63.5" Weight: 152.5lbs FRAX RISK QUESTIONS: Alcohol (3 or more units per day): No Family History (Parent hip fracture): No Glucocorticoids (More than 3mos): No (Ex: prednisone, prednisolone, methylprednisolone, dexamethasone, and hydrocortisone). History of Fracture in Adulthood: Yes (possibly shoulder) Secondary Osteoporosis: 1. Type 1 Diabetes: No 2. Hyperthyroidism: No 3. Menopause before 45: No 4. Malnutrition: No 5. Chronic liver disease: No Rheumatoid Arthritis: Yes Current Tobacco Use: No RISK FACTORS HISTORY OF: Hip Fracture (Right/Left): No Spine Fracture: No History of Wrist Fracture: No Surgery to Spine/Hip(right/left)/Wrist (right/left): No Family History of Osteoporosis: No Active: Yes Diet low in dairy products/other sources of calcium: No Postmenopausal woman: Yes Lost more than 2 inches in height since high school: No Frequent falls: No Poor Health: No Hyperparathyroidism: No Adrenal Insufficiency: No MEDICATIONS: Prednisone or other steroids: No Thyroid Medications: No Osteoporosis Medications: Yes, an osteoporosis med for a couple of years Additional Medications: Blood pressure meds, acid reflux/ulcer meds, calcium Additional History: None EXAM MEASUREMENTS: Bone mineral densitometry was performed using the [employer] System. Bone mineral density as measured about the Lumbar spine is: ----- L1-L4(G/cm2): 1.596 T Score Values are as follows: ----- L1: 2.8 ----- L2: 2.3 ----- L3: 3.5 ----- L4: 4.6 ----- L1-L4: 3.5 Z Score Values are as follows: ----- L1: 4.4 ----- L2: 3.9 ----- L3: 5.2 ----- L4: 6.3 ----- L1-L4: 5.1 Bone mineral density has: increased 5.8% since study of: 10/11/2020 Bone mineral density about the R hip (g/cm2): 1.057 Bone mineral density about the L hip (g/cm2): 0.935 T Score values are as follows: -----R Neck: -1.0 -----L Neck: 0.4 -----R Total: 0.4 -----L Total: -0.6 Z Score values are as follows: -----R Neck: 0.9 -----L Neck: 2.4 -----R Total: 2.2 -----L Total: 1.2 Bone mineral density has: decreased -0.2% since study of: 10/11/2020 FRAX%s: The graph provided illustrates a 20.8% chance for a major osteoporotic fx and a 3.7% chance f or the hips probability for fx in 10 years time. IMPRESSION: Normal (Values between +1 and -1 indicate normal bone mass). Consider repeating this study in 5 year s or sooner if there is some new clinical indication. NOTE: T-SCORE=SD OF THE YOUNG ADULT MEAN.
--- NOTE | 2023-07-02 11:14 | MM ---
Reason for Exam: Screening (asymptomatic). Last mammogram was performed 2 year(s) and 8 month(s) ago. Patient History: Menarche at age 14. First Full-Term at age 21. Postmenopausal. Risk Values: Tiny 5 year model risk: 1.4%. NCI Lifetime model risk: 2.7%. Prior Study Comparison: 07/19/2012 Screening Mammogram, [facility]. 02/22/2015 Bilateral Screening Mammogram, [facility]. 10/11/2020 Bilateral Screening Mammogram, [facility]. Tissue Density: There are scattered fibroglandular densities. Findings: Analyzed By CAD. There is no suspicious group of microcalcifications or new suspicious mass. Overall Assessment: Negative, BI-RAD 1 Management: Screening Mammogram of both breasts in [address] [facility] will attempt to contact patient to return for supplemental views and ultrasound if indicated. Patient should continue monthly self-breast exams. A clinical breast exam by your physician is recommended on an annual basis. This exam should not preclude additional follow-up of suspicious palpable abnormalities. Note on Tiny scores and lifetime risk: 1. A Tiny score greater than 3% is considered moderate risk. If this is the case, consider specialist referral to assess eligibility for a risk reducing agent. 2. If overall lifetime risk for the development of breast cancer is 20% or higher, the patient may qualify for future screening with alternating mammogram and breast MRI. Electronically signed and approved by: Mike Ribera DO
== END | disposition home or self-care (01) ==
LOC: RADMAMWWP 08:56
PROVIDERS: ATTEND Family Medicine
DX: Z12.31 Encounter for screening mammogram for malignant neoplasm of breast (principal); M81.0 Age-related osteoporosis without current pathological fracture; Z78.0 Asymptomatic menopausal state
CPT/HCPCS: 77063; 77067; 77080

== ENCOUNTER → 2024-07-03 | Outpatient (CLI) | payer MEDICARE ==
--- NOTE | 2024-07-07 14:25 | MM ---
Reason for Exam: Screening (asymptomatic). Last screening mammogram was performed 12 month(s) ago. Patient History: Menarche at age 14. First Full-Term at age 21. Postmenopausal. Risk Values: Tiny 5 year model risk: 1.4%. NCI Lifetime model risk: 2.5%. Prior Study Comparison: 02/22/2015 Bilateral Screening Mammogram, [facility]. 10/11/2020 Bilateral Screening Mammogram, [facility]. 07/02/2023 Bilateral MG 3D screening mammo w/cad, [facility]. Tissue Density: There are scattered areas of fibroglandular density. Findings: Analyzed By CAD. Right breast: There is no suspicious group of microcalcifications or new suspicious mass. Left breast: There is no suspicious group of microcalcifications or new suspicious mass. Overall Assessment: Negative, BI-RAD 1 Management: Screening Mammogram of both breasts in [address] [facility] will attempt to contact patient to return for supplemental views and ultrasound if indicated. Patient should continue monthly self-breast exams. A clinical breast exam by your physician is recommended on an annual basis. This exam should not preclude additional follow-up of suspicious palpable abnormalities. Note on Tiny scores and lifetime risk: 1. A Tiny score greater than 3% is considered moderate risk. If this is the case, consider specialist referral to assess eligibility for a risk reducing agent. 2. If overall lifetime risk for the development of breast cancer is 20% or higher, the patient may qualify for future screening with alternating mammogram and breast MRI. [facility], , 07/07/2024 2:22 PM. Electronically signed and approved by: Mike Ribera DO
== END | disposition home or self-care (01) ==
LOC: RADMAMWWP 12:55
PROVIDERS: ATTEND Family Medicine
CPT/HCPCS: 77063; 77067